=== PATIENT | male | born 1965 | race Caucasian/White ===

== ENCOUNTER 2018-05-01 12:49 | Emergency (ER) | payer OTHER ==
--- NOTE | 2018-05-01 13:52 | RAD ---
LEFT WRIST 3 VIEWS: Date: 05/01/18 HISTORY: Fall. Pain. COMPARISON: None. FINDINGS: There is soft tissue swelling on the dorsum of the hand due to a triquetral fracture. Intercarpal and radiocarpal joint spaces are preserved. IMPRESSION: Dorsal soft tissue swelling with evidence of a triquetral fracture. POS: [facility]
== END 2018-05-01 14:14 | disposition home or self-care (01) ==
LOC: ERS 12:49
DX: S62.115A Nondisplaced fracture of triquetrum [cuneiform] bone, left wrist, initial encounter for closed fracture (principal); K21.9 Gastro-esophageal reflux disease without esophagitis; Z79.899 Other long term (current) drug therapy; W18.30XA Fall on same level, unspecified, initial encounter
CPT/HCPCS: 29125

== ENCOUNTER 2019-05-26 16:36 | Emergency (ER) | payer OTHER ==
--- NOTE | 2019-05-26 17:05 | CT ---
Exam: CT brain PROVIDED CLINICAL HISTORY: Head injury COMPARISON: None FINDINGS: The ventricular system is normal in size and morphology. No evidence for intracranial hemorrhage or mass effect. The extracranial soft tissues and osseous structures demonstrate no evidence for an acute abnormality. IMPRESSION: No evidence for intracranial hemorrhage or mass effect.
== END 2019-05-26 18:15 | disposition home or self-care (01) ==
LOC: ERS 16:36
DX: S09.90XA Unspecified injury of head, initial encounter (principal); K21.9 Gastro-esophageal reflux disease without esophagitis; Z79.899 Other long term (current) drug therapy; Y04.0XXA Assault by unarmed brawl or fight, initial encounter
CPT/HCPCS: 70450

== ENCOUNTER 2020-10-18 07:43 | Outpatient (CLI) | payer OTHER | END 2020-10-18 07:44 | disposition home or self-care (01) | LOC: MRI 07:43 | PROVIDERS: ATTEND Family Medicine | DX: M54.2 Cervicalgia (principal); M47.812 Spondylosis without myelopathy or radiculopathy, cervical region | CPT/HCPCS: 72141 ==